=== PATIENT | female | born 1960 | race Hispanic/Latino ===

== ENCOUNTER 2020-01-07 03:09 | Emergency (ER) | payer SELFPAY ==
[~2020-01-07] VITALS: Ht 160 cm; Wt 77.1 kg
[2020-01-07] MEDS ORDERED: PANTOPRAZOLE 40 MG 10ML VIAL IV STA (03:17)
[2020-01-07] MEDS ORDERED: DONNATAL/LIDOCAINE/MAALOX 30 ML SUSP PO SCH (03:30)
[2020-01-07 03:49] LABS: BASOPHILS % 0.5 % (0.0-1.0); EOSINOPHILS % 0.5 % (0.0-6.0); HEMATOCRIT 41.1 % (34.2-44.1); HEMOGLOBIN 13.8 g/dL (12.0-16.0); LYMPHOCYTES # (AUTO) 1.7 (1.0-3.2); LYMPHOCYTES % 28.8 % (18.0-39.1); MEAN CORPUSCULAR HEMOGLOBIN 28.8 pg (28-32); MEAN CORPUSCULAR HGB CONC 33.6 g/dL (31-35); MEAN CORPUSCULAR VOLUME 85.6 fL (81-99); MONOCYTES # (AUTO) 0.3 (0.2-0.8); MONOCYTES % 4.7 % (4.4-11.3); NEUTROPHILS # (AUTO) 3.7 (2.1-6.9); NEUTROPHILS % 65.3 % (38.7-80.0); PLATELET COUNT 239 x10e3/uL (140-360); RED CELL DISTRIBUTION WIDTH 13.5 % (11.7-14.4)
--- NOTE | 2020-01-07 03:49 | Emergency Department Note ---
History of Present Illnes History of Present Illness Chief Complaint: General Medicine Complaints History of Present Illness This is a 59 year old female Chief Complaint Comment 59 Y/O FEMALE PT AAOX3 PRESENTS TO ED WITH REPORT OF INTERMITTENT ABDOMINAL PAIN WITH N/V AND BURNING SENSATION X1 MONTH; PT ALSO REPORTS CONSTIPATION AND REPORTS WAS SEEN BY MD AT [facility] AND RX'D DEXIL[facility]. Historian: Patient Arrival Mode: Car History limited by: language barrier Information Assurance Analyst Required: Yes Onset (how long ago): month(s) Location: Abdomen Quality: Generalized Radiation: Reports non-radiation Severity: moderate Onset quality: gradual Duration (how long): month(s) Timing of current episode: constant Progression: worsening Chronicity: chronic Context: Denies recent illness, Denies recent surgery Relieving factors: none Exacerbating factors: none Associated symptoms: Reports denies other symptoms Treatments prior to arrival: none (KIM EMERY MD) Past Medical/Family History Physician Review I have reviewed the patient's past medical and family history. Any updates have been documented here. (KIM EMERY MD) Past Medical History Recent Fever: No Clinical Suspicion of Infectio: No New/Unexplained Change in Ment: No Past Medical History: Hyperlipedemia Other Medical History: GASTRITIS Past Surgical History: Hysterectomy (KIM EMERY MD) Social History Smoking Cessation: Never Smoker Counseling Performed: No Alcohol Use: None Any Illegal Drug Use: No (KIM EMERY MD) Other Any Pre-Existing Lines (PICC,: No (KIM MEERY MD) Review of Systems Review of Systems Constitutional: Reports no symptoms EENTM: Reports no symptoms Cardiovascular: Reports no symptoms Respiratory: Reports no symptoms Gastrointestinal: Reports as per HPI Genitourinary: Reports no symptoms Musculoskeletal: Reports no symptoms Integumentary: Reports no symptoms Neurological: Reports no symptoms Psychological: Reports no symptoms Endocrine: Reports no symptoms Hematological/Lymphatic: Reports no symptoms (KIM EMERY MD) Physical Exam Related Data Allergies: Coded Allergies: No Known Allergies (Unverified , 01/07/20) Triage Vital Signs Vital Signs Date Time Temp Pulse Resp B/P (MAP) Pulse Ox O2 Delivery O2 Flow Rate FiO2 01/07/20 03:19 98.5 61 16 156/72 100 Room Air Vital signs reviewed: Yes (KIM EMERY MD) Physical Exam CONSTITUTIONAL Constitutional: Present well-developed, Present well-nourished HENT HENT: Present normocephalic, Present atraumatic, Present oropharynx clear/moist, Present nose normal HENT L/R: Present left ext ear normal, Present right ext ear normal EYES Eyes: Reports PERRL, Reports conjunctivae normal NECK Neck: Present ROM normal PULMONARY Pulmonary: Present effort normal, Present breath sounds normal CARDIOVASCULAR Cardiovascular: Present regular rhythm, Present heart sounds normal, Present capillary refill normal, Present normal rate GASTROINTESTINAL Abdominal: Present soft, Present bowel sounds normal, Present tender (Non focal) GENITOURINARY Genitourinary: Present exam deferred SKIN Skin: Present warm, Present dry MUSCULOSKELETAL Musculoskeletal: Present ROM normal NEUROLOGICAL Neurological: Present alert, Present oriented x 3, Present no gross motor or sensory deficits PSYCHOLOGICAL Psychological: Present mood/affect normal, Present judgement normal (KIM EMERY MD) Results Laboratory Lab results reviewed: Yes (KIM EMERY MD) Lab results reviewed: Yes Laboratory comments Laboratory Tests Test 01/07/20 03:31 01/07/20 03:25 Urine Color Yellow (YELLOW) Urine Clarity Clear (CLEAR) Urine pH 7 (5 - 7) Urine Specific [place] 1.020 (1.010-1.025) Urine Protein Negative (NEGATIVE) Urine Glucose (UA) Negative (NEGATIVE) Urine Ketones Negative (NEGATIVE) Urine Blood Negative (NEGATIVE) Urine Nitrite Negative (NEGATIVE) Urine Bilirubin Negative (NEGATIVE) Urine Urobilinogen 0.2 mg/dL (0.2 - 1) Urine Leukocyte Esterase Trace (NEGATIVE) Urine RBC 0-5 /HPF (0-5) Urine WBC 6-10 /HPF (0-5) Urine Epithelial Cells Moderate /LPF (NONE) Urine Bacteria Moderate /HPF (NONE) White Blood Count 5.72 x10e3/uL (4.8-10.8) Red Blood Count 4.80 x10e6/uL (3.6-5.1) Hemoglobin 13.8 g/dL (12.0-16.0) Hematocrit 41.1 % (34.2-44.1) Mean Corpuscular Volume 85.6 fL (81-99) Mean Corpuscular Hemoglobin 28.8 pg (28-32) Mean Corpuscular Hemoglobin Concent 33.6 g/dL (31-35) Red Cell Distribution Width 13.5 % (11.7-14.4) Platelet Count 239 x10e3/uL (140-360) Neutrophils (%) (Auto) 65.3 % (38.7-80.0) Lymphocytes (%) (Auto) 28.8 % (18.0-39.1) Monocytes (%) (Auto) 4.7 % (4.4-11.3) Eosinophils (%) (Auto) 0.5 % (0.0-6.0) Basophils (%) (Auto) 0.5 % (0.0-1.0) Neutrophils # (Auto) 3.7 (2.1-6.9) Lymphocytes # (Auto) 1.7 (1.0-3.2) Monocytes # (Auto) 0.3 (0.2-0.8) Eosinophils # (Auto) 0.0 (0.0-0.4) Basophils # (Auto) 0.0 (0.0-0.1) Absolute Immature Granulocyte (auto 0.01 x10e3/uL (0-0.1) Sodium Level 141 mmol/L (136-145) Potassium Level 4.0 mmol/L (3.5-5.1) Chloride Level 109 mmol/L (98-107) Carbon Dioxide Level 19 mmol/L (22-29) Anion Gap 17.0 mmol/L (8-16) Blood Urea Nitrogen 8 mg/dL (7-26) Creatinine 0.77 mg/dL (0.57-1.11) Estimat Glomerular Filtration Rate > 60 ML/MIN (60-) BUN/Creatinine Ratio 10 (6-25) Glucose Level 104 mg/dL (74-118) Calcium Level 9.9 mg/dL (8.4-10.2) Total Bilirubin 0.6 mg/dL (0.2-1.2) Aspartate Amino Transf (AST/SGOT) 15 IU/L (5-34) Alanine Aminotransferase (ALT/SGPT) 20 IU/L (0-55) Alkaline Phosphatase 102 IU/L (40-150) Troponin I 0.005 ng/mL (0-0.300) Total Protein 7.9 g/dL (6.5-8.1) Albumin 4.4 g/dL (3.5-5.0) Globulin 3.5 g/dL (2.3-3.5) Albumin/Globulin Ratio 1.3 (0.8-2.0) Lipase 24 U/L (8-78) (CHAPIN BRADSHAW DO) Imaging Imaging results reviewed: Yes (KIM EMERY MD) Imaging results reviewed: Yes Impressions [place] [address] Patient Name: DAE ALVAREZ MR #: [id number] : 1960 Age/Sex: 59/F Req #: [id number] Adm Physician: Ordered by: Kim Emery MD Report #: [id number] Location: ER Room/Bed: Procedure: [id number] DX/CHEST SINGLE (PORTABLE) Exam Date: Exam Time: REPORT STATUS: Signed EXAMINATION: CHEST SINGLE (PORTABLE) INDICATION: ^Y ^CP COMPARISON: None FINDINGS: AP view TUBES and LINES: None. LUNGS: Slight rotation. Lungs are well inflated. There is no evidence of pneumonia or pulmonary edema. Small left midlung linear atelectasis/scarring. PLEURA: No pleural effusion or pneumothorax. HEART AND MEDIASTINUM: The cardiomediastinal silhouette is unremarkable. BONES AND SOFT TISSUES: No acute osseous lesion. Soft tissues are unremarkable. UPPER ABDOMEN: No free air under the diaphragm. IMPRESSION: No acute thoracic abnormality. Signed by: Dr. Clifton Zheng MD on 01/07/2020 6:32 AM Dictated By: CLIFTON ZHENG MD 1 Transcribed By: FATMATA on 01/07/20631 COPY TO: KIM EMERY MD~ [address], [place], [place] [address] Patient Name: DAE ALVAREZ MR #: [id number] : 1960 Age/Sex: 59/F Req #: [id number] Adm Physician: Ordered by: Kim Emery MD Report #: [id number] Location: ER Room/Bed: Procedure: [id number] CT/CT ABDOMEN/PELVIS W Exam Date: Exam Time: REPORT STATUS: Signed EXAM: CT Abdomen and Pelvis WITH contrast INDICATION: ^R sided abd pain COMPARISON: None. TECHNIQUE: Abdomen and pelvis were scanned utilizing a multidetector helical scanner from the lung base to the pubic symphysis after administration of IV contrast. Coronal and sagittal reformations were obtained. Dose modulation, iterative reconstruction, and/or weight based adjustment of the mA/kV was utilized to reduce the radiation dose to as low as reasonably achievable. Routine protocol was performed. Scan was performed when during portal venous phase. IV CONTRAST: 100 mL of Isovue-370 ORAL CONTRAST: Water COMPLICATIONS: None RADIATION DOSE: Total DLP: 829.81 mGy*cm Estimated effective dose: (DLP x 0.015 x size factor) mSv CTDIvol has been reviewed. It is below the limits set by the Radiation Protocol Committee (RPC). FINDINGS: LINES and TUBES: None. LOWER THORAX: Unremarkable HEPATOBILIARY: No focal hepatic lesions. No biliary ductal dilation. GALLBLADDER: No radio-opaque stones or sludge. No wall thickening. SPLEEN: No splenomegaly. Too small to characterize hypodensity, likely a cyst. PANCREAS: No focal masses or ductal dilatation. ADRENALS: No adrenal nodules KIDNEYS/URETERS: Kidneys enhance symmetrically. No hydronephrosis. No renal mass. 1.4 cm right midpole hypodensity with slightly greater than simple fluid density, likely a mildly complex cyst. Subcentimeter right inferior pole hypodensity is too small to characterize. No stones. GI TRACT: No abnormal distention, wall thickening, or evidence of bowel obstruction. There are diverticula within the colon without evidence of diverticulitis. Appendix is normal. PELVIC ORGANS/BLADDER: Hysterectomy. Bladder is unremarkable. LYMPH NODES: No lymphadenopathy. VESSELS: Unremarkable. PERITONEUM / RETROPERITONEUM: No free air or fluid. BONES: Unremarkable. SOFT TISSUES: Unremarkable. IMPRESSION: 1. No acute inflammatory process in the abdomen/pelvis. 2. Colonic diverticulosis without evidence of diverticulitis. Signed by: Dr. Clifton Zheng MD on 01/07/2020 6:31 AM Dictated By: CLIFTON ZHENG MD 0 Transcribed By: FATMATA on 01/07/20630 COPY TO: KIM EMERY MD~ (CHAPIN BRADSHAW DO) Diagnostics Tests Diagnostic test(s) reviewed: Yes (KIM EMERY MD) Procedures 12 Lead ECG Interpretation ECG Interpretation : Information Assurance Analyst: Interpreted by ED physician Date: Jan 07, 2020 Rhythm: sinus rhythm Rate: normal QRS axis: normal ST segments normal: Yes T waves normal: Yes Clinical Impression: normal ECG (KIM EMERY MD) Assessment & Plan Medical Decision Making MDM 59 y.o F presents for reflux. States she used to take lemon juice which helped but it no longer helps which is why she is here. She has been seen at [facility] for this and has outpatient appointments arranged. Initial dif includes HERD VS PUD VS H pylori vs gallbladder disease vs appendicitis. Exam shows non focal abd discomfort. cardiopulmonary w/u benign. CT abd pelvis and labs ordered. She was given GI cocktail, protonix with moderate improvement in symptoms. (KIM EMERY MD) Reassessment Reassessment time: 03:49 Reassessment Pain improved (KIM EMERY MD) Assessment & Plan Final Impression: (1) Reflux gastritis (KIM EMERY MD) Depart Disposition: HOME, SELF-CARE Last Vital Signs Date Time Temp Pulse Resp B/P (MAP) Pulse Ox O2 Delivery O2 Flow Rate FiO2 01/07/20 03:19 98.5 61 16 156/72 100 Room Air (KIM EMERY MD) Medications in the ED Pantoprazole Sodium 40 mg NOW STAT IV ; Start 01/07/20 at 03:17; Stop 0 at 03:22; Status DC Belladonna Alkaloids/ Phenobarbital 30 ml ONCE PO ; Start 01/07/20 at 03:30; Stop 02/06/20 at 03:29 Lidocaine HCl 15 ml STK-MED ONCE .ROUTE ; Start 01/07/20 at 03:50; Stop 01/07/20 at 03:43; Status DC Belladonna Alkaloids/ Phenobarbital 10 ml STK-MED ONCE .ROUTE ; Start 01/07/20 at 03:50; Stop 01/07/20 at 03:43; Status DC Magnesium Aluminum Silicate 30 ml STK-MED ONCE .ROUTE ; Start 01/07/20 at 03:51; Stop 01/07/20 at 03:44; Status DC (KIM EMERY MD) KIM EMERY MD Jan 07, 2020 03:49 CHAPIN BRADSHAW DO Jan 07, 2020 06:38
[2020-01-07] MEDS ORDERED: LIDOCAINE VISC 2% SOLN 15 ML UDC ONE (03:50)
[2020-01-07] MEDS ORDERED: BELLADONNA ALK/PHENOBARBITAL 5 ML UDC ONE (03:50)
[2020-01-07 03:51] LABS: BILIRUBIN,URINE NEGATIVE (NEGATIVE); CLARITY,URINE CLEAR (CLEAR); COLOR,URINE YELLOW (YELLOW); KETONES,URINE NEGATIVE (NEGATIVE); LEUKOCYTE ESTERASE ,URINE TRACE (NEGATIVE); NITRITE,URINE NEGATIVE (NEGATIVE); PROTEIN,URINE DIPSTICK NEGATIVE (NEGATIVE); URINE UROBILINOGEN 0.2 mg/dL (0.2 - 1)
[2020-01-07] MEDS ORDERED: MAGNESIUM/ALUMINUM/SIMETHICONE 30 ML UDC ONE (03:51)
[2020-01-07] MEDS ORDERED: ONDANSETRON HCL INJ 2MG/ML 2ML 2 MG/ML VIAL IV STA (03:57)
[2020-01-07 03:59] LABS: BACTERIA,URINE MODERATE /HPF; EPITHELIAL CELLS,URINE MODERATE /LPF; RBC,URINE 0-5 /HPF (0-5)
[2020-01-07] MEDS ORDERED: ONDANSETRON HCL INJ 2MG/ML 2ML 2 MG/ML VIAL ONE (04:02)
[2020-01-07 04:06] LABS: ALANINE AMINOTRANSFERASE 20 IU/L (0-55); ALBUMIN 4.4 g/dL (3.5-5.0); ALBUMIN/GLOBULIN RATIO 1.3 (0.8-2.0); ALKALINE PHOSPHATASE 102 IU/L (40-150); BLOOD UREA NITROGEN 8 mg/dL (7-26); BUN/CREATININE RATIO 10 (6-25); CALCIUM 9.9 mg/dL (8.4-10.2); CARBON DIOXIDE 19 mmol/L (22-29); CHLORIDE 109 mmol/L (98-107); CREATININE, SERUM 0.77 mg/dL (0.57-1.11); EST GLOMERULAR FILTRATION RATE > 60 ML/MIN (60-); GLUCOSE 104 mg/dL (74-118); SODIUM 141 mmol/L (136-145)
--- OUTSIDE RECORDS SUMMARY | 2020-01-07 04:43 | XMS REPORT | Clinical Summary ---
Author Author [facility] Organization [facility] Address Unknown Phone Unavailable Care Team Providers Care Motion Picture Set Grip Name Role Phone Mike Arreaga MD PCP Allergies No Known Allergies Medications End Date Status Medication Sig Dispensed Refills Start Date Active hydrocortisone 2.5 % Apply to 20 g 2 05/06 topical creamIndications: affected area 9 Hemorrhoids, unspecified 2 times hemorrhoid type daily. Active hydrocortisone Insert 1 24 2 (ANUSOL-HC) 25 mg rectal Suppository Suppository 9 suppositoryIndications: rectally 2 Hemorrhoids, unspecified times daily. hemorrhoid type Active metFORMIN (GLUCOPHAGE XR) Take 1 tablet 90 tablet 3 500 mg ER extended by mouth 9 release daily (with tabletIndications: breakfast). Prediabetes Active atorvastatin (LIPITOR) 40 Take 2 180 tablet 1 mg tabletIndications: tablets by 9 Mixed hyperlipidemia mouth at bedtime nightly Active fenofibrate Take 1 tablet 90 tablet 1 nanocrystallized (TRICOR) by mouth 9 145 mg tabletIndications: daily Dose Mixed hyperlipidemia increased 06/20/2018. Active benzonatate (TESSALON Take 1-2 30 capsule 0 02/23 PERLES) 100 mg capsules by 9 capsuleIndications: Viral mouth every 8 URI with cough hours as needed for cough: Please use MALTESE LABEL. Active cetirizine (ZYRTEC) 10 mg Take 1 tablet 30 tablet 0 tabletIndications: Viral by mouth 9 URI with cough daily. Active mometasone (NASONEX) 50 2 Sprays by 17 g 0 mcg/actuation nasal each nostril 9 sprayIndications: Viral route daily URI with cough Please use MALTESE LABEL. Active nitrofurantoin Take 1 20 capsule 0 mono/m-crystals capsule by 0 (MACROBID) 100 mg mouth 2 times capsuleIndications: daily. Hematuria, unspecified type Active dexlansoprazole Take 1 90 capsule 1 (DEXILANT) 30 mg delayed capsule by 0 release mouth daily. capsuleIndications: Gastroesophageal reflux disease without esophagitis 01/28/2019 Discontinued (Reorder) atorvastatin (LIPITOR) 40 Take 1 tablet 90 tablet 1 mg tabletIndications: by mouth at 9 Mixed hyperlipidemia bedtime nightly 01/28/2019 Discontinued (Reorder) fenofibrate Take 1 tablet 90 tablet 1 nanocrystallized (TRICOR) by mouth 9 145 mg tabletIndications: daily Dose Mixed hyperlipidemia increased 06/20/2018. 03/11/2019 Discontinued (Therapy comple garth) benzonatate (TESSALON Take 1-2 30 capsule 0 /0 PERLES) 100 mg capsules by 9 capsuleIndications: Viral mouth every 8 URI with cough hours as needed for cough. 01/28/2019 Discontinued (Reorder) cetirizine (ZYRTEC) 10 mg Take 1 tablet 30 tablet 0 tabletIndications: Viral by mouth 9 URI with cough, Nasal daily Please congestion with use MALTESE rhinorrhea LABEL. 03/11/2019 Discontinued (Therapy comple garth) mometasone (NASONEX) 50 2 Sprays by 17 g 0 mcg/actuation nasal each nostril 9 sprayIndications: Viral route daily URI with cough, Nasal congestion with rhinorrhea 03/11/2019 Discontinued (Therapy comple garth) codeine-guaiFENesin Take 10 mL by 120 mL 0 10/24 (CHERATUSSIN AC) 10-100 mouth 3 times 9 mg/5 mL syrupIndications: daily as Cough needed for Cough or Congestion Caution: may cause drowsiness. 02/07/2019 Discontinued (Reorder) fenofibrate Take 1 tablet 90 tablet 1 nanocrystallized (TRICOR) by mouth 9 145 mg tabletIndications: daily Dose Mixed hyperlipidemia increased 06/20/2018. 01/30/2019 Discontinued (Reorder) atorvastatin (LIPITOR) 40 Take 1 tablet 90 tablet 1 mg tabletIndications: by mouth at 9 Mixed hyperlipidemia bedtime nightly 03/11/2019 Discontinued (Therapy comple garth) cetirizine (ZYRTEC) 10 mg Take 1 tablet 30 tablet 0 tabletIndications: Viral by mouth 9 URI with cough, Nasal daily Please congestion with use MALTESE rhinorrhea LABEL. 02/07/2019 ciprofloxacin HCl (CIPRO) Take 1 tablet 20 tablet 0 500 mg tabletIndications: by mouth 2 9 Dysuria times daily for 10 days. 02/07/2019 Discontinued (Reorder) atorvastatin (LIPITOR) 40 Take 2 180 tablet 1 mg tabletIndications: tablets by 9 Mixed hyperlipidemia mouth at bedtime nightly 02/10/2019 nitrofurantoin Take 1 20 capsule 0 mono/m-crystals capsule by 9 (MACROBID) 100 mg mouth 2 times capsuleIndications: UTI daily for 10 due to extended-spectrum days. beta lactamase (ESBL) producing Escherichia coli 11/09/2019 PHENAZOPYRIDINE HCL Take 100 mg 10 tablet 0 (PYRIDIUM) 100 mg by mouth 3 0 tabletIndications: times daily Hematuria, unspecified as needed for type up to 3 days for Pain. 12/04/2019 Discontinued (Reorder) cefpodoxime (VANTIN) 200 Take 1 tablet 20 tablet 0 mg tabletIndications: by mouth 2 0 Pyelonephritis, Cystitis times daily for 10 days. 12/19/2019 Discontinued (Therapy comple garth) ondansetron (ZOFRAN) 4 mg Take 1 tablet 12 tablet 0 tabletIndications: by mouth 0 Pyelonephritis, Cystitis every 8 hours as needed for Nausea. 12/14/2019 cefpodoxime (VANTIN) 200 Take 1 tablet 20 tablet 0 mg tabletIndications: by mouth 2 0 Pyelonephritis, Cystitis times daily (after meals) for 10 days. 12/26/2019 Discontinued (Therapy comple garth) famotidine (PEPCID) 20 mg Take 1 tablet 60 tablet 1 tabletIndications: by mouth 2 0 Gastritis without times daily bleeding, unspecified Start taking chronicity, unspecified only AFTER gastritis type FINISHING CEFPODOXIME. 12/29/2019 ondansetron (ZOFRAN) 8 mg Take 1 tablet 30 tablet 0 tabletIndications: Nausea by mouth 0 and vomiting, every 8 hours intractability of as needed for vomiting not specified, up to 10 days unspecified vomiting type for Nausea Fill DENY. 12/20/2019 TRIPLE MIX Take 5 mL by 15 mL 0 (Benadryl/Maalox/Lidocain mouth 3 times 0 e) oral suspension daily for 1 -CMPDIndications: day Fill Abdominal bloating DENY. Active Problems Problem Noted Date Right hip pain 06/23/2018 Prediabetes 08/27/2017 Claustrophobia 02/13/2017 Injury of right rotator cuff 02/13/2017 Left lower quadrant pain 10/31/2016 mild bilateral hip joint arthritis 11/08/2015 S/P hysterectomy (without oophrectomy - per pt.) S/P colonoscopy in 2014 --> recent hematochezia prior to 2019 scheduled f/u 07/16/2015 colonoscopy /Mar 2018 Colonoscopy Nor mal --> Repeat in 2028 Overview: FINDINGS: 1. Cecum - AO orifice visulized, TI int ubated. 2. Ascending colon - 1 small sessile po lyp (6mm) 3. Transverse colon - 1 small sessile p olyp (4mm) 4. Descending colon - normal 5. Sigmoid colon - normal 6. Rectum - moderate and small internal hemorrhoids. ENDOSCOPIC DIAGNOSIS: 1. Moderate-sized internal hemorrhoids. 2. 6mm sessile polyp in asecnding colon 3. 4mm small sessile polyp in transvers e colon RECOMMENDATIONS: 1. Follow up pathology on polyps 2. Conservative therapy for hemorrhoids (likely cause of bleeding). 3. Surveillance coloncsopy for CRC in 5 years (10 years if polyps are hyperplastic). No FIT/FOBT until then. ==== MAR 2018 COLONOSCOPY NORMAL WITH GRADE II INTERNAL HEMORRHOIDS ONLY History of herpes zoster 02/12/2015 Hematochezia 08/18/2014 Hypertriglyceridemia 07/31/2014 Hemorrhoids 07/31/2014 Obesity 07/31/2014 History of UTI ecoli 2014 07/31/2014 Gingivitis Chronic 01/19/2014 Other and unspecified hyperlipidemia Encounters Care Team Description Date Type Specialty Regino-Elroy, Kathi V, [employer]NAGER Hematuria, unspecified type (Primary Dx) ; Nausea and vomiting, intractability of vomiting not specified, unspecified vomiting type; Gastroesophageal reflux disease without esophagitis; Encounter for preventive care 12/26/2019 Telemedicine [facility] Justin Oneil MD Stress incontinence of urine (Primary Dx ) 12/23/2019 [facility] Chica Rowe PA Nausea and vomiting, intractability of v omiting not specified, unspecified vomiting type (Primary Dx); Abdominal bloating 12/19/2019 [facility] Encounter Carey Paiz RN 12/18/2019 Nurse Triage Mike Arreaga Jr., MD Gastroesophageal reflux disease without esophagitis; Fatty stools; Duodenal disease; Melena; Weakness 12/17/2019 Lab Appointment Lab Mike Arreaga Jr., MD 12/16/2019 Orders Only [facility] Mike Arreaga Jr., MD Gastroesophageal reflux disease without esophagitis (Primary Dx); Fatty stools; Pancreatic insufficiency; Duodenal disease 12/15/2019 [facility] Encounter Bear Ravi MD 12/07/2019 E-Consult Gastroenterology Mike Arreaga Jr., MD Gastritis without bleeding, unspecified chronicity, unspecified gastritis type (Primary Dx); Pyelonephritis; Cystitis 12/04/2019 [facility] Encounter Quentin Pate PA Pyelonephritis (Primary Dx); Lower abdominal pain; Dark stools; Cystitis 12/02/2019 Emergency Emergency Medicine - 12/03/2019 Mike Arreaga Jr., MD Melena (Primary Dx); Kidney stone; Weakness 12/02/2019 [facility] Encounter Kathi Brown NP Urinary frequency (Primary Dx); Proteinuria, unspecified type; Kidney stone; Lower abdominal pain [facility] Kathi Brown NP Hematuria, unspecified type (Primary Dx) 11/06/2019 [facility] Encounter Nadeem Atkins MD Veloz, Jessica, BILLIE Tc, 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 02/07/2019 Office Visit Family Practice Breezy Amezcua MD 02/07/2019 Orders Only [facility] Mike Arreaga Jr., MD Medications 01/30/2019 Orders Only [facility] Mike Arreaga Jr., MD Dysuria 01/28/2019 Lab Appointment Lab Mike Arreaga Jr., MD Need for influenza vaccination (Primary Dx); Dysuria; Preventative health care; Right subscapular pain; Female pelvic pain; Breast screening; Mixed hyperlipidemia; Viral URI with cough; Nasal congestion with rhinorrhea 01/28/2019 Office Visit Family Practice after 01/06/2019 Immunizations Name Administration Dates Next Due Herpes Zoster Vaccine In 02/12/2015 Clinic Influenza Vaccine 02/03/2015, 01/07/2014, 01/2011 Influenza Vaccine, 02/06/2017 Seasonal, Injectable Influenza, 01/28/2019, 05/06/2018 Vaccine<FLUCELVAX>(Multi- Dose) Td Tetanus, diphtheria 11/26/2003 Toxoids Vaccine Tdap Tetanus, diphtheria, 10/29/2012 acellular pertussis Vaccine Family History Medical History Relation Name Comments Arthritis Maternal Grandmother Heart Maternal Grandmother Stroke Mother Relation Name Status Comments Brother Alive Daughter Alive Father accident (Age 75) Maternal Grandfather Maternal Grandmother Mother Paternal Grandfather Paternal Grandmother Sister Alive Son Alive Son Alive Son Alive Social History Date Tobacco Use Types Packs/Day Years Used Never Smoker Smokeless Tobacco: Never Used Tobacco Cessation: Counseling Given: No Drinks/Week oz/Week Comments Alcohol Use No Food Insecurity Answer Date Recorded Within the past 12 months, you worried that your Never nettie e 02/21/2018 food would run out before you got money to buy more. Within the past 12 months, the food you bought Never true 02/21/2018 just didn't last and you didn't have mo yobani to get more. Sex Assigned at Date Recorded Not on file Industry Job Start Date Occupation Not on file Not on file Not on file Travel End Travel History Travel Start No recent travel history available. Date Recorded COVID-19 Exposure Response 12/29/2019 7:40 AM CDT In the last month, have you been in contact with No / Unsure someone who was confirmed or suspected to have Coronavirus / COVID-19? Last Filed Vital Signs Reading Time Taken Comments Vital Sign 134/79 12/03/2019 1:51 AM CDT Blood Pressure 61 12/03/2019 1:51 AM CDT Pulse 36.9 C (98.5 F) 12/03/2019 1:51 AM CDT Temperature 16 12/03/2019 1:51 AM CDT Respiratory Rate 100% 12/03/2019 1:51 AM CDT Oxygen Saturation - - Inhaled Oxygen Concentration 86.2 kg (190 lb) 03/11/2019 11:15 AM CUSTOM BOOKBINDER Weight 154.9 cm (5' 1") 03/11/2019 11:15 AM CUSTOM BOOKBINDER Height 35.9 03/11/2019 11:15 AM CUSTOM BOOKBINDER Body Mass Index Plan of Treatment Care Team Description Date Type Specialty 01/08/2020 Appointment Radiology DO NOT eat, drink, chew gum, smoke, do not take any medication, vitamin or insulin after 10pm the night before your appointment or the morning of your appointment. 01/08/2020 Appointment Radiology 01/12/2020 Office Visit Mike Arreaga Jr., MD [address] [place] [address]. [place] [address] [phone] 01/28/2020 Office Visit Family Practice 02/26/2020 Ancillary Radiology Procedure Health Maintenance Due Date Last Done Comments Breast Cancer Scrn 02/15/2020 02/14/2019, (Yearly) 12/04/2017, 12/05/2016, Additional history exists Colonoscopy 10yr 04/12/2028 04/12/2018 (Previously completed - External), 10/06/2014 Procedures Comments Procedure Name Priority Date/Time Associated Diag nosis URINE CULTURE Routine 12/26/2019 Hematuria, unsp ecified 3:32 PM CDT type CBC Routine 12/26/2019 Hematuria, unsp ecified 3:32 PM CDT type URINALYSIS Routine 12/26/2019 Hematuria, unsp ecified 3:32 PM CDT type CBC/DIFF Routine 12/26/2019 Hematuria, unsp ecified 3:32 PM CDT type URINALYSIS Routine 12/26/2019 Hematuria, unsp ecified 3:32 PM CDT type BASIC METABOLIC PANEL Routine 12/26/2019 Nausea a nd vomiting, 3:32 PM CDT intractability of vomiting not specified, unspecified vomiting type H. PYLORI STOOL AG Routine 12/18/2019 Gastroesoph ageal reflux 10:02 AM CDT disease without esophagitis Fatty stools Duodenal disease URINE CULTURE Routine 12/17/2019 Urinary frequen cy 3:38 PM CDT Proteinuria, unspecified type Kidney stone Lower abdominal pain CBC STAT 12/17/2019 Melena 3:38 PM CDT Weakness CBC/DIFF STAT 12/17/2019 Melena 3:38 PM CDT Weakness LIPASE Routine 12/17/2019 Gastroesophagea l reflux 3:38 PM CDT disease without esophagitis Fatty stools Duodenal disease BASIC METABOLIC PANEL Routine 12/17/2019 Melena 3:38 PM CDT Kidney stone URINALYSIS Routine 12/17/2019 Urinary frequen cy 3:38 PM CDT Proteinuria, unspecified type Kidney stone Lower abdominal pain URINALYSIS Routine 12/17/2019 Urinary frequen cy 3:38 PM CDT Proteinuria, unspecified type Kidney stone Lower abdominal pain URINE CULTURE STAT 12/02/2019 11:[address] ABDOMEN AND PELVIS STAT 12/02/2019 Lower ab dominal pain CONTRAST 9:57 PM CDT ABO/RH CONFIRMATION STAT 12/02/2019 3:04 PM CDT T&S - COLLECTION STAT 12/02/2019 3:04 PM CDT URINALYSIS STAT 12/02/2019 3:04 PM CDT CBC STAT 12/02/2019 3:04 PM CDT TYPE AND SCREEN STAT 12/02/2019 3:04 PM CDT LIPASE STAT 12/02/2019 3:04 PM CDT LIVER PROFILE STAT 12/02/2019 3:04 PM CDT URINALYSIS STAT 12/02/2019 3:04 PM CDT CBC/DIFF STAT 12/02/2019 3:04 PM CDT BASIC METABOLIC PANEL STAT 12/02/2019 3:04 PM CDT URINE CULTURE Routine 11/11/2019 Hematuria, unsp ecified 3:30 PM CDT type URINALYSIS Routine 11/11/2019 Hematuria, unsp ecified 3:30 PM CDT type URINALYSIS Routine 11/11/2019 Hematuria, unsp ecified 3:30 PM CDT type MAMMOGRAM BILAT SCREEN Routine 02/14/2019 Breast screening DIGITAL 10:19 AM [employer]OM BOOKBINDER URINE CULTURE Routine 01/28/2019 Dysuria 11:10 AM [employer]OM BOOKB[employer]ER URINALYSIS Routine 01/28/2019 Dysuria MICROSCOPIC-REFLEX 11:10 AM C[employer]OM BOOKB[employer]ER CBC Routine 01/28/2019 Preventative he alth care 11:10 AM C[employer]OM BOOKB[employer]ER CBC/DIFF Routine 01/28/2019 Preventative he alth care 11:10 AM C[employer]OM BOOKB[employer]ER COMPREHENSIVE METABOLIC Routine 01/28/2019 [facility] PANEL 11:10 AM CUSTOM BOOKBINDER LIPID PROFILE Routine 01/28/2019 Preventative he alth care 11:10 AM C[employer]OM BOOKB[employer]ER HEMOGLOBIN A1C Routine 01/28/2019 Preventative he alth care 11:10 AM CUSTOM BOOKB[employer]ER URINALYSIS STAT 01/28/2019 Dysuria 11:10 AM CUSTOM BOOKB[employer]ER URINALYSIS STAT 01/28/2019 Dysuria 11:10 AM CUSTOM BOOKBINDER after 01/06/2019 Results * CBC/Diff (12/26/2019 3:32 PM CDT) Only the most recent of 4 results within the time period is included. WBC 8.7 4.5 - 11.0 K/uL [facility] RBC 4.63 4.20 - 5.40 M/uL [facility] Hemoglobin 13.7 12.0 - 16.0 g/dL [facility] Hematocrit 40.7 37.0 - 47.0 % [facility] MCV 87.9 82.0 - 92.0 fL [facility] MCH 29.6 27.0 - 32.0 pg [facility] MCHC 33.7 32.0 - 36.0 g/dL [facility] RDW 43.6 36.4 - 46.3 fL [facility] Platelet 257 150 - 400 K/uL [facility] Mean Platelet 12.0 9.4 - 12.4 fL [facility] Percent NRBC 0.0 % [facility] Neutrophil 73.5 (H) 34.0 - 70.0 % [facility] Lymphs 20.2 20.0 - 50.0 % [facility] Monocytes 4.9 (L) 5.0 - 12.0 % [facility] Eos 0.5 (L) 0.7 - 5.0 % [facility] Basos 0.6 0.1 - 1.2 % [facility] Immature 0.3 0.0 - 0.5 % [facility] Granul[facility] Neutrophils 6.40 (H) 1.56 - 6.13 K/uL [facility] (Absolute) [facility] Lymphs 1.76 1.18 - 3.74 K/uL [facility] (Absolute) [facility] Monocytes(Absol 0.43 (H) 0.24 - 0.36 K/uL [facility] [place]) [facility] Eos (Absolute) 0.04 0.04 - 0.36 K/uL [facility] Baso (Absolute) 0.05 0.01 - 0.08 K/uL [facility] Immature Grans 0.03 0.00 - 0.03 K/uL [facility] (Abs) [facility] Absolute NRBC 0.00 K/uL [facility] Specimen Blood Performing Organization Address [facility]/Counts Include [address] one Number [facility] [address] [place] [address] [phone] * Urinalysis (12/26/2019 3:32 PM CDT) Only the most recent of 5 results within the time period is included. Color Yellow Colorless, Straw, [facility] Clarity Hazy (A) Clear [facility] Spec [place], 1.027 1.001 - 1.035 [facility] pH, Ur 5.0 5.0 - 8.0 [facility] Protein, Ur Negative Negative mg/dL [facility] Glucose, Ur Negative Negative mg/dL [facility] Ketone, Ur Negative Negative mg/dL [facility] Bilirubin, Ur Negative Negative mg/dL [facility] Nitrite, Ur Negative Negative [facility] Leukocyte 1+ (A) Negative mg/dL [facility] Blood, Ur Negative Negative mg/dL [facility] RBC 1 0 - 4 /HPF [facility] WBC 2 0 - 5 /HPF [facility] Epithelial Cell 1 <=1 /HPF [facility] Mucous Present (A) None seen /HPF [facility] Urobilinogen, <1.0 <1.0 EU/dL [facility] Specimen Urine - Clean Catch [place] Performing Organization Address [facility] one Number [facility] [address] [place] [address] * URINE CULTURE (C & S) (12/26/2019 3:32 PM CDT) Only the most recent of 5 results within the time period is included. Pathologist [facility] Urine Culture Multiple organisms suggestive [facility] of contamination. No further LABORATORY workup performed. Please recollect. Specimen Urine - Clean Catch [place] Performing Organization Address [facility]/Counts Include [facility] one Number [facility] [address] [place] [address] * Basic Metabolic Panel (12/26/2019 3:32 PM CDT) Only the most recent of 3 results within the time period is included. Sodium 141 136 - 145 mmol/L [facility] Potassium 4.3 3.5 - 5.1 mmol/L [facility] Chloride 104 98 - 107 mmol/L [facility] CO2 26 21 - 31 mmol/L [facility] Urea Nitrogen 11.0 7.0 - 25.0 mg/dL [facility] Creatinine 0.8 0.6 - 1.2 mg/dL [facility] Glucose 99 70 - 110 mg/dL [facility] Calcium 10.0 8.6 - 10.3 mg/dL [facility] GFR, Estimated 73 (L) >=90 mL/min/1.73 m2 [facility] Anion Gap 11 5 - 16 mmol/L [facility] Specimen Blood Performing Organization Address [facility]/Counts Include [facility] one Number [facility] [address] [place] [address] * H. Pylori Stool Ag (12/18/2019 10:02 AM CDT) Pathologist [facility] H. pylori Stool Negative Negative [facility] Ag, EIA Specimen Stool - Feces Narrative Performed At Performed at: 01 - [facility] BT [facility] [address] [place] [address] [address] Surfacer: Veronica Killian MD, Phone : [phone] Performing Organization Address [facility]/Counts Include [address] [facility] one Number [facility] [address] [place] [address] * Lipase (12/17/2019 3:38 PM CDT) Only the most recent of 2 results within the time period is included. Pathologist [facility] Lipase 37 11 - 82 U/L [facility] Specimen Blood Performing Organization Address [facility]/Counts Include [facility] one Number [facility] [address] [place] [address] * CT ABDOMEN AND PELVIS CONTRAST (12/02/2019 9:57 PM CDT) Specimen Impressions Performed At IMPRESSION: SMS 1. Mild thickening of the bladder wal l, which can be seen in cystitis. 2. Hepatomegaly with steatosis. Dictated By: Armond Wang DO, 12/02/19 20 10:14 PM I have reviewed the study and agree wit h the findings in this report. Signed By: Demario Hunter DO, 12/03/2019 12:35 AM Narrative Performed At EXAM: CT Abdomen and Pelvis WITH contrast SMS INDICATION: Abd pain, acute, generalize d Lower abdominal pain HISTORY: 59 y/o F with a h/o anemia, an xiety, recent UTI s/p treatment in the past week who p/w ongoing lower abdominal pain, mild dysuria, and c/f kidney stones as well as GIB per PC P (pt sent for evaluation). She reports R flank pain radiating to her R LQ without hematuria; she denies fever, chills. She reports nausea and 2 episodes of non-bloody emesis. She also reports dark stools x 2 days ( 6 total episodes), as well as generalized fatigue.? COMPARISON: CT abdomen pelvis on 017 TECHNIQUE: Abdomen and pelvis were scan douglas utilizing a multidetector helical scanner from the lung base to t he pubic symphysis after administration of IV contrast. Coronal and sagittal reformations were obtained. Routine protocol was performe d. Scan was performed when during portal venous phase. IV CONTRAST: 100 mL of Omnipaque 300 ORAL CONTRAST: None COMPLICATIONS: None RADIATION DOSE: Total DLP: 401 mGy*cm Estimated effective dose: (DLP x 0.015 x size factor) mSv CTDIvol has been reviewed. It is below the limits set by the Radiation Protocol Committee (RPC). FINDINGS: LINES and TUBES: None. LOWER THORAX: Unremarkable. HEPATOBILIARY: The liver measures 16.7 cm in the right midclavicular line. Decreased attenuation when compar ed to the spleen, compatible with steatosis. No focal hepatic lesions. No biliary ductal dilation. GALLBLADDER: No radio-opaque stones or sludge. No wall thickening. SPLEEN: No splenomegaly. Unchanged 0.5 cm hypodense lesion along the inferior aspect of the spleen is too sm all to characterize. PANCREAS: No focal masses or ductal dil atation. ADRENALS: No adrenal nodules. KIDNEYS/URETERS: Kidneys enhance symmet rically. No hydronephrosis. Unchanged 1.4 cm cyst in the right supe rior pole. No stones. GI TRACT: Stomach: Unremarkable. Small Bowel: Unremarkable. Large Bowel: Unremarkable. Appendix: Normal. PELVIC ORGANS/BLADDER: Mild bladder wal l thickening. The uterus is surgically absent. LYMPH NODES: No lymphadenopathy. VESSELS: Minimal atherosclerosis of the infrarenal abdominal aorta. PERITONEUM / RETROPERITONEUM: No free a ir or fluid. BONES: Unremarkable mild degenerative c hanges of the lumbar spine. SOFT TISSUES: Tiny fat-containing periu mbilical hernia.. Procedure Note Interface, Rad/Mammog In - 12/03/2019 12:40 AM CDT EXAM: CT Abdomen and Pelvis WITH contrast INDICATION: Abd pain, acute, generalized Lower abdominal pain HISTORY: 59 y/o F with a h/o anemia, anxiety, recent UTI s/p treatment in the past week who p/w ongoing lower abdominal pain, mild dysuria, and c/f kidney stones as well as GIB per PCP (pt sent for evaluation). She reports R flank pain radiating to her RLQ without hematuria; she denies fever, chills. She reports nausea and 2 episodes of non-bloody emesis. She also reports dark stools x 2 days (6 total episodes), as well as generalized fatigue.? COMPARISON: CT abdomen pelvis on 11/10/2016 TECHNIQUE: Abdomen and pelvis were scanned utilizing a multidetector helical scanner from the lung base to the pubic symphysis after administration of IV contrast. Coronal and sagittal reformations were obtained. Routine protocol was performed. Scan was performed when during portal venous phase. IV CONTRAST: 100 mL of Omnipaque 300 ORAL CONTRAST: None COMPLICATIONS: None RADIATION DOSE: Total DLP: 401 mGy*cm Estimated effective dose: (DLP x 0.015 x size factor) mSv CTDIvol has been reviewed. It is below the limits set by the Radiation Protocol Committee (RPC). FINDINGS: LINES and TUBES: None. LOWER THORAX: Unremarkable. HEPATOBILIARY: The liver measures 16.7 cm in the right midclavicular line. Decreased attenuation when compared to the spleen, compatible with steatosis. No focal hepatic lesions. No biliary ductal dilation. GALLBLADDER: No radio-opaque stones or sludge. No wall thickening. SPLEEN: No splenomegaly. Unchanged 0.5 cm hypodense lesion along the inferior aspect of the spleen is too small to characterize. PANCREAS: No focal masses or ductal dilatation. ADRENALS: No adrenal nodules. KIDNEYS/URETERS: Kidneys enhance symmetrically. No hydronephrosis. Unchanged 1.4 cm cyst in the right superior pole. No stones. GI TRACT: Stomach: Unremarkable. Small Bowel: Unremarkable. Large Bowel: Unremarkable. Appendix: Normal. PELVIC ORGANS/BLADDER: Mild bladder wall thickening. The uterus is surgically absent. LYMPH NODES: No lymphadenopathy. VESSELS: Minimal atherosclerosis of the infrarenal abdominal aorta. PERITONEUM / RETROPERITONEUM: No free air or fluid. BONES: Unremarkable mild degenerative changes of the lumbar spine. SOFT TISSUES: Tiny fat-containing periumbilical hernia.. IMPRESSION IMPRESSION: 1. Mild thickening of the bladder wall, which can be seen in cystitis. 2. Hepatomegaly with steatosis. Dictated By: Armond Wang DO, 12/02/2019 10:14 PM I have reviewed the study and agree with the findings in this report. Signed By: Demario Hunter DO, 12/03/2019 12:35 AM Performing Organization Address [facility]/Counts Include [facility] one Number SMS * T&S Collection (12/02/2019 3:04 PM CDT) Specimen 12/05/2019 23:59 [facility] Expiration ABO/RH O POS [facility] Antibody Screen NEG [facility] Specimen Blood - Arm, left Performing Organization Address [facility] one Number [facility] [address] [place] [address] * ABO/RH CONFIRMATION (12/02/2019 3:04 PM CDT) ABO/RH O POS [facility] Specimen Blood - Arm, left Performing Organization Address [facility] one Number [facility] [address] [place] [address] * Liver Profile (12/02/2019 3:04 PM CDT) Total Protein 8.0 6.0 - 8.3 g/dL [facility] Bilirubin, 0.5 0.2 - 1.2 mg/dL [facility] Total [facility] Alkaline 112 (H) 34 - 104 U/L [facility] Phosphatase [facility]ORY AST 19 13 - 39 U/L [facility] Direct 0.1 0.0 - 0.2 mg/dL [facility] Bilirubin [facility] ALT 26 7 - 52 U/L [facility] Albumin 4.9 3.7 - 5.3 g/dL [facility] Specimen Blood Performing Organization Address [facility] one Number [facility] [address] [place], [place] [id number] * MAMMOGRAM BILAT SCREEN DIGITAL (02/14/2019 10:19 AM CUSTOM BOOKBINDER) Specimen Impressions Performed At IMPRESSION: BENIGN SMS There is no mammographic evidence of ma lignancy. A 1 year screening mammogram is recommended. This document has been electronically s igned. Nicole Haney M.D. ks/:02/14/2019 12:24:28 Ex Assistant/Program Director: Ms. Aimee llamas RT(R)(M), [facility] letter sent: Benign Exam Mammogram BI-RADS: 2 Benign G0202 z1 2.31 Narrative Performed At #[id number] - MAMMOGRAM BILAT SCREEN DIGITAL SMS BILATERAL DIGITAL SCREENING MAMMOGRAM W ITH CAD: 02/14/2019 CLINICAL: Screening for malignancy. Comparison is made to exams dated: 01/2018, 12/05/2016, and 07/16/2015 [facility]. There are scattered fibroglandular [place] ents in both breasts that could obscure a lesion on mammography. Current study was also evaluated with a Computer Aided Detection (CAD) system. No new significant masses, calcificatio ns, or other findings are seen in either breast. There are annabelle gn calcifications in both breasts. Procedure Note Interface, Rad/Mammog In - 02/14/2019 2:14 PM CUSTOM BOOKBINDER #[id number] - MAMMOGRAM BILAT SCREEN DIGITAL BILATERAL DIGITAL SCREENING MAMMOGRAM WITH CAD: 02/14/2019 CLINICAL: Screening for malignancy. Comparison is made to exams dated: 12/04/2017, 12/05/2016, and 07/16/2015 [facility]. There are scattered fibroglandular elements in both breasts that could obscure a lesion on mammography. Current study was also evaluated with a Computer Aided Detection (CAD) system. No new significant masses, calcifications, or other findings are seen in either breast. There are benign calcifications in both breasts. IMPRESSION IMPRESSION: BENIGN There is no mammographic evidence of malignancy. A 1 year screening mammogram is recommended. This document has been electronically signed. Nicole Haney M.D. ks/:02/14/2019 12:24:28 Ex Assistant/Program Director: Ms. Aimee Ba RT(R)(M), [facility] letter sent: Benign Exam Mammogram BI-RADS: 2 Benign G0202 z12.31 Performing Organization Address City/State/Counts Include [facility] one Number SMS * URINALYSIS, MICROSCOPIC (01/28/2019 11:10 AM CUSTOM BOOKBINDER) RBC 1-4 0 - 4 /HPF [facility] WBC 20-50 (A) 0 - 5 /HPF [facility] Epithelial Cell <1/HPF <1 /HPF [facility] Bacteria Many (A) None seen /HPF [facility] Specimen Urine - Clean Catch Mid Stream Performing Organization Address [facility]/Counts Include [facility] one Number [facility] [address] [place] [address] [facility] * Hemoglobin A1C (01/28/2019 11:10 AM CUSTOM BOOKBINDER) Hemoglobin A1c 6.0 4.3 - 6.1 % [facility] Estimated 126 (H) 70 - 110 mg/dL [facility] Average Glucose LABOR[facility]ORY Specimen Blood Performing Organization Address [facility]/Counts Include [facility] one Number [facility] [address] [place] [address] * Comprehensive Metabolic Panel (01/28/2019 11:10 AM CUSTOM BOOKBINDER) Sodium 141 136 - 145 mmol/L [facility] Potassium 4.3 3.5 - 5.1 mmol/L [facility] Chloride 105 98 - 107 mmol/L [facility] CO2 27 21 - 31 mmol/L [facility] Glucose 74 70 - 110 mg/dL [facility] Calcium 9.7 8.6 - 10.3 mg/dL [facility] Urea Nitrogen 11.0 7.0 - 25.0 mg/dL [facility] Creatinine 0.6 0.6 - 1.2 mg/dL [facility] Alkaline 93 34 - 104 U/L [facility] Phosphatase [facility] ALT 19 7 - 52 U/L [facility] AST 16 13 - 39 U/L [facility] Bilirubin, 0.7 0.2 - 1.2 mg/dL [facility] Total Protein 7.3 6.0 - 8.3 g/dL [facility] GFR, Estimated >90 >=90 mL/min/1.73 m2 [facility] Albumin 4.6 3.7 - 5.3 g/dL [facility] Anion Gap 9 5 - 16 mmol/L [facility] Specimen Blood Performing Organization Address City/[facility]/Zipcode Ph one Number [facility] [address] [place] [address] [phone] * Lipid Profile (01/28/2019 11:10 AM CUSTOM BOOKBINDER) Cholesterol 222.0 (H) <=200.0 mg/dL [facility] Triglyceride 446 (H) <150 mg/dL [facility] HDL 36.0 See Reference Range [facility] Narrative. mg/dL [facility]ORY LDL Comment: Triglyceride value is <100 mg/dL [facility] > 400 mg/dl. Unable to LABORATORY calculate LDL value due to high triglyceride. Patient Yes [facility] Fasting? [facility] Specimen Blood Performing Organization Address City/[facility] [address] [place] [address] after 01/06/2019 Insurance Type Payer Benefit Subscriber ID Effective Phone Address Plan / Dates Group [place] [facility] xxxxxx 2019- [address] [employer] FAMILY [id number] [place], [place] [address] [employer] xxxxxx 2019- [phone] [id number] [place] [address] Guarantor Name Account Relation to Date of Phone Billin g Address Type Patient DAE ALVAREZ Personal/F Head of 1960 [address] (Home) [place], [place] [phone] (Self) DAE ALVAREZ Gerry Head of 1960 [address] ([place]) [place] [address] (Self)
--- OUTSIDE RECORDS SUMMARY | 2020-01-07 04:43 | XMS REPORT | Continuity of Care Document ---
Author Author [facility] t Organization [facility] Address 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 Phone Gibson BETTS, Mike PCP Stephanie EMBROIDERY PATTERNMAKER, Kathi Attphys [phone] Thad BETTS, N Justin Attphys Soledad VILLANUEVA, Gregorio Coto Attphys Chencho RN, Jessenia Patino Attphys Unavailable Gibson BETTS, Mike Attphys Trav BETTS, Denise Sifuentes Attphys Herlinda VILLANUEVA, Dneise Saavedra Attphys Milly BETTS, Tripp Silver Attphys Shiva EMBROIDERY PATTERNMAKER, Shannan Attphys Tc EMBROIDERY PATTERNMAKER, Deena Cano Attphys Wilmar RODRÍGUEZ, Marianne Tai Attphys Unavailable Seven BETTS, Krunal Tijerina Attphys Payers Payer Name Policy Type Policy Number Effective Date Expiration Date [facility] [place] FAM[place] LY PLANNING [id number], [place] [address] xxxxxx 2019 00:00:00 2020 23:59:59 [facility] PLANFINANCIAL ASSISTANCE PROGRAMxxx [id number] [place] [address] xxxxxx 2019 00:00:00 04-06 23:59:59 [facility] Problems Condition Name Condition Details Condition Category Status Onset Date Resolution Date Last Treatment Date Treating Clinician Comments Source Right hip pain Right hip pain Disease Active 2018-06-23 00:00:00 [facility] Prediabetes Prediabetes Disease Active 2017-08-27 00:00:00 [facility] Claustrophobia Claustrophobia Disease Active 2017-02-13 00:00:00 [facility] Injury of right rotator cuff Injury of right rotator cuff Disease Active 2017-02-13 00:00:00 [facility] Left lower quadrant pain Left lower quadrant pain Disease Acti ve 2016-10-31 00:00:00 [facility] mild bilateral hip joint arthritis mild bilateral hip joint arth ritis Disease Active 2015-11-08 00:00:00 [employer] S/P hysterectomy (without oophrectomy - per pt.) S/P h ysterectomy (without oophrectomy - per pt.) Disease Active 2015-07-19 00:00:00 [employer] S/P colonoscopy in 2014 --> recent hemat ochezia prior to 2019 scheduled f/u colonoscopy /Mar 2018 Colonoscopy Normal --> Repeat in 2028 S/P colonoscopy in 2014 --> recent hematochezia prior to 2019 scheduled f/u colonoscopy /Mar 2018 Colonoscopy Normal --> Repeat in 2028 Disease Active 2015-07-16 00:00:00 Overview: FINDINGS:1. Cecum - AO orifice visulized, TI intubated.2. Ascending colon - 1 small sessile polyp (6mm)3. Transverse colon - 1 small sessile polyp (4mm)4. Descending colon - normal5. Sigmoid colon - normal6. Rectum - moderate and small internal hemorrhoids.ENDOSCOPIC DIAGNOSIS:1. Moderate-sized internal hemorrhoids.2. 6mm sessile polyp in asecnding colon3. 4mm small sessile polyp in transverse colonRECOMMENDATIONS:1. Follow up pathology on polyps2. Conservative therapy for hemorrhoids (likely cause of bleeding).3. Surveillance coloncsopy for CRC in 5 years (10 years if polyps are hyperplastic). No FIT/FOBT until then.====MAR 2018 COLONOSCOPY NORMAL WITH GRADE II INTERNAL HEMORRHOIDS ONLY [facility] History of herpes zoster History of herpes zoster Disease Acti ve 2015-02-12 00:00:00 [facility] Hematochezia Hematochezia Disease Active 2014-08-18 00:00:00 [facility] Hypertriglyceridemia Hypertriglyceridemia Disease Active 00:00:00 [facility] Hemorrhoids Hemorrhoids Disease Active 2014-07-31 00:00:00 [facility] Obesity Obesity Disease Active 2014-07-31 00:00:00 [facility] History of UTI ecoli 2014 History of UTI ecoli 2014 Disease A ctive 2014-07-31 00:00:00 [facility] Gingivitis Chronic Gingivitis Chronic Disease Active 2014-01-19 00:00:0 0 [facility] Other and unspecified hyperlipidemia Other and unspecified h yperlipidemia Disease Active [facility] Allergies, Adverse Reactions, Alerts Allergy Name Allergy Type Status Severity Reaction(s) Onset Date Inacti ve Date Treating Clinician Comments Source No Known Allergies DA Active U 2016-12-04 00:00:00 [facility] Family History Family Member Diagnosis Comments Start Date Stop Date Source Maternal grandmother Arthritis [facility] Maternal grandmother Heart [facility] is [facility] Natural mother Stroke [facility] Social History Social Habit Start Date Stop Date Quantity Comments Source Sex Assigned [facility] Exposure to SARS-CoV-2 (event) Not sure [facility] Alcohol intake 2019-12-19 00:00:00 2019-12-19 00:00:00 Current non-drinker of alcohol (finding) [facility] History SDOH Food Worry 2018-02-21 00:00:00 2018-02-21 00:00:00 1 [facility] History SDOH Food Scarcity 2018-02-21 00:00:00 2018-02-21 00:00:00 1 [facility] Smoking Status Start Date Stop Date Source Never smoker [facility] Medications Ordered Medication Name Filled Medication Name Start Date Stop Da te Current Medication? Ordering Clinician Indication Dosage Frequency Signature (SIG) Comments Components Source dexlansoprazole (DEXILANT) 30 mg delayed release capsule 2019-12-26 00:00:00 Yes Gastroesophageal reflux disease without esophag itis 30mg QD Take 1 capsule by mouth daily. [facility] ondansetron (ZOFRAN) 8 mg tablet 2019-12-19 00:00:00 2019-12 23:59:00 No Nausea and vomiting, intractability of vomiting not specified, unspecified vomiting type 8mg Take 1 tablet by amadou th every 8 hours as needed for up to 10 days for Nausea Fill DENY. [facility] TRIPLE MIX (Benadryl/Maalox/Lidocaine) oral suspension -CMPD 2019-12-19 00:00:00 2019-12-20 23:59:00 No Abdominal bloating 5mL Take 5 mL by mouth 3 times daily for 1 day Fill DENY. [facility] famotidine (PEPCID) 20 mg tablet 2019-12-04 00:00:00 2019-12 00:00:00 No Gastritis without bleeding, unspecified chronicity, unspecified gastritis type 20mg Q.5D Take 1 tablet by mouth 2 otis es daily Start taking only AFTER FINISHING CEFPODOXIME. [facility] cefpodoxime (VANTIN) 200 mg tablet 2019-12-04 00:00:00 23:59:00 No Cystitis 200mg Q.5D Take 1 tablet by mouth 2 times daily (after meals) for 10 days. [facility] ondansetron (ZOFRAN) 4 mg tablet 2019-12-03 00:00:00 2019-11 00:00:00 No Cystitis 4mg Take 1 tablet by mouth every 8 hours as needed for Nausea. [facility] cefpodoxime (VANTIN) 200 mg tablet 2019-12-03 00:00:00 00:00:00 No Cystitis 200mg Q.5D Take 1 tablet by mouth 2 times daily for 10 days. [facility] nitrofurantoin mono/m-crystals (MACROBID) 100 mg capsule 2019-11-06 00:00:00 Yes Hematuria, unspecified type 100mg Q.5D Take 1 capsule by mouth 2 times daily. [facility] PHENAZOPYRIDINE HCL (PYRIDIUM) 100 mg tablet 00:00:00 2019-11-09 23:59:00 No Hematuria, unspecified type 100mg Take 100 mg by mouth 3 times daily as needed for up to 3 days for Pain. [facility] benzonatate (TESSALON PERLES) 100 mg capsule 2019-03-11 00:0 0:00 Yes Viral URI with cough Take 1-2 capsules by mouth every 8 hours as needed for cough: Please use TONGAN LABEL. [facility] cetirizine (ZYRTEC) 10 mg tablet 2019-03-11 00:00:00 Yes Viral URI with cough 10mg QD Take 1 tablet by mouth daily. [facility] mometasone (NASONEX) 50 mcg/actuation nasal spray 2019-03-11 00:00:00 Yes Viral URI with cough 2{spray} QD 2 Sprays by each no stril route daily Please use TONGAN LABEL. [facility] metFORMIN (GLUCOPHAGE XR) 500 mg ER extended release tablet 2019-02-07 00:00:00 Yes Prediabetes 500mg QD Take 1 t ablet by mouth daily (with breakfast). [facility] atorvastatin (LIPITOR) 40 mg tablet 2019-02-07 00:00:00 Yes Mixed hyperlipidemia 80mg Take 2 tablets by mouth at bedtime nightly [facility] fenofibrate nanocrystallized (TRICOR) 145 mg tablet 2018-03 00:00:00 Yes Mixed hyperlipidemia 145mg QD Take 1 tabl et by mouth daily Dose increased 06/20/2018. [facility] nitrofurantoin mono/m-crystals (MACROBID) 100 mg capsule 2019-01-31 00:00:00 2019-02-10 23:59:00 No UTI due to extended- spectrum beta lactamase (ESBL) producing Escherichia coli 100mg Q.5D Take 1 capsul e by mouth 2 times daily for 10 days. [facility] atorvastatin (LIPITOR) 40 mg tablet 2019-01-30 00:00:0 0 2019-02-07 00:00:00 No Mixed hyperlipidemia 80mg Take 2 tablets by mouth at bedtime nightly [facility] cetirizine (ZYRTEC) 10 mg tablet 2019-01-28 00:00:00 2019-02 00:00:00 No Nasal congestion with rhinorrhea 10mg QD Take 1 tablet by mouth daily Please use TONGAN LABEL. [facility] fenofibrate nanocrystallized (TRICOR) 145 mg tablet 2019-01-28 00:00:00 2019-02-07 00:00:00 No Mixed hyperlipidemia 145mg QD Take 1 tablet by mouth daily Dose increased 06/20/2018. Clive whitlock ciprofloxacin HCl (CIPRO) 500 mg tablet 00:00:00 2019-02-07 23:59:00 No Dysuria 500mg Q.5D Take 1 tablet by mouth 2 times daily for 10 days. [facility] atorvastatin (LIPITOR) 40 mg tablet 2019-01-28 00:00:0 0 2019-01-30 00:00:00 No Mixed hyperlipidemia 40mg Take 1 tablet by mouth at b edtime nightly [facility] codeine-guaiFENesin (CHERATUSSIN AC) 10-100 mg/5 mL syrup 2018-11-06 00:00:00 2019-03-11 00:00:00 No Cough 10mL Take 10 mL by mouth 3 times daily as needed for Cough or Congestion Caution: may cause drowsiness. [facility] benzonatate (TESSALON PERLES) 100 mg capsule 201 12-01-05 00:00:00 2019-03-11 00:00:00 No Viral URI with cough Take 1-2 capsules by mouth every 8 hours as needed for cough. [facility] mometasone (NASONEX) 50 mcg/actuation nasal spray 2018-10-29 00:00:00 2019-03-11 00:00:00 No Nasal congestion with rhinorrhea 2{spr ay} QD 2 Sprays by each nostril route daily [facility] Serafin cetirizine (ZYRTEC) 10 mg tablet 2018-10-29 00:00:00 2019-01 00:00:00 No Nasal congestion with rhinorrhea 10mg QD Take 1 tablet by mouth daily Please use TONGAN LABEL. [facility] atorvastatin (LIPITOR) 40 mg tablet 2018-06-20 00:00:0 0 2019-01-28 00:00:00 No Mixed hyperlipidemia 40mg Take 1 tablet by mouth at b edtime nightly [facility] fenofibrate nanocrystallized (TRICOR) 145 mg tablet 2018-06-20 00:00:00 2019-01-28 00:00:00 No Mixed hyperlipidemia 145mg QD Take 1 tablet by mouth daily Dose increased 06/20/2018. [facility] hydrocortisone 2.5 % topical cream 2018-05-06 00:00:00 Yes Hemorrhoids, unspecified hemorrhoid type Q.5D Apply to affected area 2 times daily. [facility] hydrocortisone (ANUSOL-HC) 25 mg rectal suppository 05-06 00:00:00 Yes Hemorrhoids, unspecified hemorrhoid type 25mg Q.5D Insert 1 Suppository rectally 2 times daily. [facility] Immunizations Ordered Immunization Name Filled Immunization Name Date Status Comments Source Influenza, Vaccine<FLUCELVAX>(Multi-Dose) 2019-01-28 00:00 :00 Completed [facility] Influenza, Vaccine<FLUCELVAX>(Multi-Dose) 2018-05-06 00:00 :00 Completed [facility] Influenza Vaccine, Seasonal, Injectable 2017-02-06 00:00:0 0 Completed [facility] Herpes Zoster Vaccine In Clinic 2015-02-12 00:00:00 Comple [facility] Influenza Vaccine 2015-02-03 00:00:00 Completed [facility] Influenza Vaccine 2014-01-07 00:00:00 [facility] Tdap Tetanus, diphtheria, acellular pertussis Vaccine 2012-10-29 00:00:00 Completed [facility] Influenza Vaccine 2011-01-03 00:00:00 Completed [facility] Td Tetanus, diphtheria Toxoids Vaccine 2003-11-26 00:00:00 [facility] Vital Signs Vital Name Observation Time Observation Value Comments Source Systolic blood pressure 2019-12-03 01:51:00 134 mm[Hg] [facility] Diastolic blood pressure 2019-12-03 01:51:00 79 mm[Hg] [facility] Heart rate 2019-12-03 01:51:00 61 /min [facility] Body temperature 2019-12-03 01:51:00 36.94 [facility] Respiratory rate 2019-12-03 01:51:00 16 /min [facility] Oxygen saturation in Arterial blood by Pulse oximetry 12-02 01:51:00 100 /min [facility] Body height 2019-03-11 11:15:00 154.9 cm [facility] Body weight 2019-03-11 11:15:00 86.183 kg [facility] BMI 2019-03-11 11:15:00 35.90 kg/m2 [facility] Procedures Procedure Date / Time Performed Performing Clinician [facility] e BASIC METABOLIC PANEL 2019-12-26 15:32:00 Stephanie [facility] URINALYSIS 2019-12-26 15:32:00 ReginoJadeCynthia [facility] CBC/DIFF 2019-12-26 15:32:00 Stephanie [facility] URINALYSIS 2019-12-26 15:32:00 Stephanie [facility] CBC 2019-12-26 15:32:00 ReginoCynthia [facility] URINE CULTURE 2019-12-26 15:32:00 ReginoCynthia [facility] H. PYLORI STOOL AG 2019-12-18 10:02:00 [facility] URINALYSIS 2019-12-17 15:38:00 ReginoJadeCynthia [facility] URINALYSIS 2019-12-17 15:38:00 ReginoJadeCynthia [facility] BASIC METABOLIC PANEL 2019-12-17 15:38:00 Arreaga [facility] LIPASE 2019-12-17 15:38:00 [facility] CBC/DIFF 2019-12-17 15:38:00 [facility] 2019-12-17 15:38:00 ArreagaMike [facility] h URINE CULTURE 2019-12-17 15:38:00 ReginoCynthia [facility] URINE CULTURE 2019-12-02 23:22:00 Ivy Murray [facility] CT ABDOMEN AND PELVIS CONTRAST 2019-12-02 21:57:00 Derrick Sam [facility] BASIC METABOLIC PANEL 2019-12-02 15:04:00 Rivera Sam [facility] CBC/DIFF 2019-12-02 15:04:00 Rivera Sam [facility] URINALYSIS 2019-12-02 15:04:00 Rivera Sam [facility] LIVER PROFILE 2019-12-02 15:04:00 Rivera Sam [facility] LIPASE 2019-12-02 15:04:00 Rivera Sam [facility] TYPE AND SCREEN 2019-12-02 15:04:00 Rivera Sam [facility] CBC 2019-12-02 15:04:00 Rivera Sam [facility] URINALYSIS 2019-12-02 15:04:00 Rivera Sam [facility] T&S - COLLECTION 2019-12-02 15:04:00 Rivera Sam [facility] ABO/RH CONFIRMATION 2019-12-02 15:04:00 Rivera Sam [facility] URINALYSIS 2019-11-11 15:30:00 Stephanie [facility] URINALYSIS 2019-11-11 15:30:00 ReginoCynthia [facility] URINE CULTURE 2019-11-11 15:30:00 ReginoCynthia [facility] MAMMOGRAM BILAT SCREEN DIGITAL 2019-02-14 10:19:31 Tanisha Arreaga [facility] URINALYSIS 2019-01-28 11:10:00 Mike Arreaga [facility] URINALYSIS 2019-01-28 11:10:00 Mike Arreaga [facility] HEMOGLOBIN A1C 2019-01-28 11:10:00 Mike Arreaga [facility] LIPID PROFILE 2019-01-28 11:10:00 Mike Arreaga [facility] COMPREHENSIVE METABOLIC PANEL 2019-01-28 11:10:00 Paulie Arreaga [facility] CBC/DIFF 2019-01-28 11:10:00 Mike Arreaga [facility] CBC 2019-01-28 11:10:00 Mike Arreaga [facility] URINALYSIS MICROSCOPIC-REFLEX 2019-01-28 11:10:00 Paulie Arreaga [facility] URINE CULTURE 2019-01-28 11:10:00 Mike Arreaga [facility] Plan of Care Planned Activity Planned Date Details Comments Source Future Scheduled Test 2028-04-12 00:00:00 Screening for eduard gnant neoplasm of colon (procedure) [code = 688128071] [facility] Future Scheduled Test 2020-02-15 00:00:00 Breast Cancer Scrn (Yearly) [code = Breast Cancer Scrn (Yearly)] [facility] Encounters Start Date/Time End Date/Time Encounter [facility] ID Source 2019-03-14 00:00:00 2019-03-14 00:00:00 Outpatient [facility] [id number] [facility] 2019-02-14 09:22:35 2019-02-14 09:22:35 Outpatient [facility] [id number] [facility] 2019-02-07 08:25:50 2019-02-07 08:25:50 Outpatient [facility] [id number] [facility] 2019-01-28 11:09:44 2019-01-28 11:09:44 Outpatient [facility] [id number] [facility] 2019-01-28 09:14:57 2019-01-28 09:14:57 Outpatient [facility] [id number] [facility] 2019-01-28 00:00:00 2019-01-28 00:00:00 Outpatient [facility] [id number] [facility] 2018-12-10 10:27:48 2018-12-10 10:27:48 Outpatient [facility] [id number] [facility] 2018-12-06 00:00:00 2018-12-06 00:00:00 Outpatient [facility] [id number] [facility] 2018-11-06 11:46:22 2018-11-06 11:46:22 Outpatient [facility] [id number] [facility] 2018-11-06 00:00:00 2018-11-06 00:00:00 Outpatient [facility] [id number] [facility] 2018-10-31 00:00:00 2018-10-31 00:00:00 Outpatient [facility] [id number] [facility] 2018-10-29 10:19:40 2018-10-29 10:19:40 Outpatient [facility] [id number] [facility] 2018-06-20 10:51:50 2018-06-20 10:51:50 Outpatient [facility] [id number] [facility] 2018-06-20 09:36:55 2018-06-20 09:36:55 Outpatient [facility] [id number] [facility] 2018-06-07 00:00:00 2018-06-07 00:00:00 Outpatient [facility] [id number] [facility] 2018-05-06 15:37:31 2018-05-06 15:37:31 Outpatient [facility] [id number] [facility] 2018-04-26 00:00:00 2018-04-26 00:00:00 Outpatient [facility] [id number] [facility] 2018-04-22 08:52:56 2018-04-22 08:52:56 Outpatient [facility] [id number] [facility] 2018-02-21 09:20:39 2018-02-21 09:20:39 Outpatient [facility] [id number] [facility] 2018-02-21 08:09:03 2018-02-21 08:09:03 Outpatient [facility] [id number] [facility] 2017-12-04 10:32:33 2017-12-04 10:32:33 Outpatient [facility] [id number] [facility] 2017-11-27 00:00:00 2017-11-27 00:00:00 Outpatient [facility] [id number] [facility] 2017-11-06 08:59:13 2017-11-06 08:59:13 Outpatient [facility] [id number] [facility] 2017-10-15 08:38:45 2017-10-15 08:38:45 Outpatient [facility] [id number] [facility] 2017-10-09 09:57:49 2017-10-09 09:57:49 Outpatient [facility] [id number] [facility] 2017-10-09 08:38:02 2017-10-09 08:38:02 Outpatient [facility] [id number] [facility] 2017-09-21 00:00:00 2017-09-21 00:00:00 Outpatient [facility] [id number] [facility] 2017-09-11 00:00:00 2017-09-11 00:00:00 Outpatient [facility] [id number] [facility] 2017-09-07 00:00:00 2017-09-07 00:00:00 Outpatient [facility] [id number] [facility] 2017-09-05 00:00:00 2017-09-05 00:00:00 Outpatient [facility] [id number] [facility] 2017-09-04 14:14:53 2017-09-04 14:14:53 Outpatient [facility] [id number] [facility] 2017-08-27 10:51:03 2017-08-27 10:51:03 Outpatient [facility] [id number] [facility] 2017-08-27 09:28:24 2017-08-27 09:28:24 Outpatient [facility] [id number] [facility] 2017-08-14 08:43:30 2017-08-14 08:43:30 Outpatient [facility] [id number] [facility] 2017-08-10 08:49:43 2017-08-10 08:49:43 Outpatient [facility] [id number] [facility] 2017-07-12 00:00:00 2017-07-12 00:00:00 Outpatient [facility] [id number] [facility] 2017-06-29 00:00:00 2017-06-29 00:00:00 Outpatient [facility] [id number] [facility] 2017-05-07 00:00:00 2017-05-07 00:00:00 Outpatient [facility] [id number] [facility] 2017-03-13 00:00:00 2017-03-13 00:00:00 Outpatient [facility] [id number] [facility] 2017-03-12 14:08:24 2017-03-12 14:08:24 Outpatient [facility] [id number] [facility] 2017-02-06 09:58:40 2017-02-06 09:58:40 Outpatient [facility] [id number] [facility] 2017-02-06 09:51:54 2017-02-06 09:51:54 Outpatient [facility] [id number] [facility] 2017-02-06 08:38:51 2017-02-06 08:38:51 Outpatient [facility] [id number] [facility] 2017-01-29 10:14:17 2017-01-29 10:14:17 Outpatient [facility] [id number] [facility] 2017-01-01 00:00:00 2017-01-01 00:00:00 Outpatient [facility] [id number] [facility] 2016-12-05 10:09:17 2016-12-05 10:09:17 Outpatient [facility] [id number] [facility] 2016-12-01 00:00:00 2016-12-01 00:00:00 Outpatient [facility] [id number] [facility] 2016-11-10 11:10:21 2016-11-10 11:10:21 Outpatient [facility] [id number] [facility] 2016-10-31 10:56:24 2016-10-31 10:56:24 Outpatient [facility] [id number] [facility] 2016-10-30 14:08:56 2016-10-30 14:08:56 Outpatient [facility] [id number] [facility] 2016-10-16 08:55:01 2016-10-16 08:55:01 Outpatient [facility] [id number] [facility] Results Test Description Test Time Test Comments Results Result Comments Source URINE CULTURE (C & S) 2019-12-29 07:01:00 Test Item Urine Culture (test code = 630-4) Multiple organisms s uggestive of contamination. No further workup performed. [facility] [id number] 21:15:00* Test Item Value Reference Range Interpretation Comments Sodium (test code = 2951-2) 141 mmol/L 136-145 Potassium (test code = 2823-3) 4.3 mmol/L 3.5-5.1 Chloride (test code = 2075-0) 104 mmol/L 98-107 CO2 (test code = 33473660) 26 mmol/L 21-31 Urea Nitrogen (test code = 19786572) 11.0 mg/dL 7-25 Creatinine (test code = 01534206) 0.8 mg/dL 0.6-1.2 Glucose (test code = 47430580) 99 mg/dL 70-110 Calcium (test code = 21638851) 10.0 mg/dL 8.6-10.3 GFR, Estimated (test code = 86917000) 73 >=90 mL/min/1.73 m2 L Anion Gap (test code = 09189428) 11 mmol/L 5-16 Lab Interpretation (test code = 76616-4) Abnormal [id number] 20:59:00* Test Item Value Reference Range Interpretation Comments Color (test code = 06703312) Yellow Colorless, Straw, Yellow Clarity (test code = 08277365) Hazy Clear A Spec [place], Ur (test code = 62474203) 1.027 1.001-1.035 pH, Ur (test code = 77353779) 5.0 5.0-8.0 Protein, Ur (test code = 98226808) Negative Negative mg/dL Glucose, Ur (test code = 71256842) Negative Negative mg/dL Ketone, Ur (test code = 82766309) Negative Negative mg/dL Bilirubin, Ur (test code = 71495789) Negative Negative mg/dL Nitrite, Ur (test code = 77860152) Negative Negative Leukocyte (test code = 91188726) 1+ Negative mg/dL A Blood, Ur (test code = 08849774) Negative Negative mg/dL RBC (test code = 83193388) 1 0- 4 /HPF WBC (test code = 28124224) 2 0- 5 /HPF Epithelial Cell (test code = 89372932) 1 <=1 /HPF Mucous (test code = 36501308) Present None seen /HPF A Urobilinogen, Ur (test code = 64046599) <1.0 <1.0 EU/dL Lab Interpretation (test code = 25871-4) Abnormal [id number] 20:53:00* Test Item Value Reference Range Interpretation Comments WBC (test code = 6690-2) 8.7 K/uL 4.5-11 RBC (test code = 789-8) 4.63 4.20- 5.40 M/uL Hemoglobin (test code = 718-7) 13.7 g/dL 12-16 Hematocrit (test code = 4544-3) 40.7 % 37-47 MCV (test code = 787-2) 87.9 fL 82-92 MCH (test code = 785-6) 29.6 pg 27-32 MCHC (test code = 786-4) 33.7 g/dL 32-36 RDW (test code = 21410-0) 43.6 fL 36.4-46.3 Platelet (test code = 777-3) 257 K/uL 150-400 Mean Platelet Volume (test code = 89651-2) 12.0 fL 9.4-12.4 Percent NRBC (test code = 26973941) 0.0 % Neutrophil (test code = 770-8) 73.5 % 34-70 H Lymphs (test code = 736-9) 20.2 % 20-50 Monocytes (test code = 5905-5) 4.9 % 5-12 L Eos (test code = 713-8) 0.5 % 0.7-5 L Basos (test code = 706-2) 0.6 % 0.1-1.2 Immature Granulocytes (test code = 15147788) 0.3 % 0-0.5 Neutrophils (Absolute) (test code = 68206853) 6.40 K/uL 1.56-6.1 3 H Lymphs (Absolute) (test code = 60227032) 1.76 K/uL 1.18-3.74 Monocytes(Absolute) (test code = 30143801) 0.43 K/uL 0.24-0.36 H Eos (Absolute) (test code = 22367404) 0.04 K/uL 0.04-0.36 Baso (Absolute) (test code = 57990141) 0.05 K/uL 0.01-0.08 Immature Grans (Abs) (test code = 85629868) 0.03 K/uL 0-0.03 Absolute NRBC (test code = 22756690) 0.00 K/uL Lab Interpretation (test code = 44694-9) Abnormal [facility] Pylori Stool [id number] 23:06:00* Test Item Value Reference Range Interpretation Comments H. pylori Stool Ag, EIA (test code = 26133-3) Negative Negative NESTOR (test code = NESTOR) Performed at: [address] [place] [address] [id number] Director: Veronica Killian MD, Phone: [phone] [facility] [id number] 21:00:00* Test Item Value Reference Range Interpretation Comments Lipase (test code = 00661901) 37 U/L 11-82 Lab Interpretation (test code = 99825-6) Normal [facility] P[facility] [id number] 00:35:27IMPRESSION: 1. Mild thickening of the bladder wall, which can be seen in cystitis.2. Hepatomegaly with steatosis. Dictated By: Armond Wang DO, 12/02/2019 10:14 PM I have reviewed the study and agree with the findings in this report. Signed By: Demario Hunter DO, 12/03/2019 12:35 AM Interface, Samy/Mammog In - 12/03/2019 12:40 AM CDTEXAM: CT Abdomen and Pelvis WITH contrast INDICATION: Abd pain, acute, generalized Lower abdominal pain HISTORY: 59 y/o F with a h/o anemia, anxiety, recent UTI s/p treatmentin the past week who p/w ongoing lower abdominal pain, mild dysuria, andc/f kidney stones as well as GIB per PCP (pt sent for ev aluation). Shereports R flank pain radiating to her RLQ without hematuria; she d eniesfever, chills. She reports nausea and 2 episodes of non-bloody emesis.She a lso reports dark stools x 2 days (6 total episodes), as well asgeneralized fatig ue.?COMPARISON: CT abdomen pelvis on 11/10/2016TECHNIQUE: Abdomen and pelvis were scanned utilizing a multidetectorhelical scanner from the lung base to the pubic symphysis afteradministration of IV contrast. Coronal and sagittal reformations wereobtained. Routine protocol was performed. Scan was performed when duringpo rtal venous phase. IV CONTRAST: 100 mL of Omnipaque 300 ORAL CONTRAS T: None COMPLICATIONS: NoneRADIATION DOSE: Total DLP: 401 mGy*cm Estimated effective dose: (DLP x 0.015 x size factor) mSv CTDIvol has be en reviewed. It is below the limits set by theRadiation Protocol Committee (RPC) .FINDINGS:LINES and TUBES: None.LOWER THORAX: Unremarkable.HEPATOBILIARY: The l iver measures 16.7 cm in the right midclavicularline. Decreased attenuation when compared to the spleen, compatible withsteatosis. No focal hepatic lesions. No biliary ductal dilation. GALLBLADDER: No radio-opaque stones or sludge. No wall thickening.SPLEEN: No splenomegaly. Unchanged 0.5 cm hypodense lesion along t heinferior aspect of the spleen is too small to characterize.PANCREAS: No focal masses or ductal dilatation. ADRENALS: No adrenal nodules. KIDNEYS/URETERS: Kidneys enhance symmetrically. No hydronephrosis. Unchanged 1.4 cm cyst in the right superior pole. No stones.GI TRACT: Stomach: Unremarkable.Small Bowel: Unr emarkable.Large Bowel: Unremarkable.Appendix: Normal.PELVIC ORGANS/BLADDER: Mild bladder wall thickening. The uterus issurgically absent.LYMPH NODES: No lymphad enopathy.VESSELS: Minimal atherosclerosis of the infrarenal abdominal aorta.MEENA TONEUM / RETROPERITONEUM: No free air or fluid.BONES: Unremarkable mild degenera tive changes of the lumbar spine.SOFT TISSUES: Tiny fat-containing periumbilical hernia.. IMPRESSIONIMPRESSION: 1. Mild thickening of the bladder wall, which can be seen in cystitis.2. Hepatomegaly with steatosis.Dictated By: Armond san DO, 12/02/2019 10:14 PMI have reviewed the study and agree with the findings in this report.Signed By: Demario Hunter DO, 12/03/2019 12:35 [id number] 16:15:00* Test Item Value Reference Range Interpretation Comments Specimen Expiration (test code = 05003953) 12/05/2019 23:59 ABO/RH (test code = 99043402) O POS Antibody Screen (test code = 78156063) NEG [facility] [id number] 16:12:00* Test Item Value Reference Range Interpretation Comments ABO/RH (test code = 69960549) O POS [facility] [id number] 16:11:00* Test Item Value Reference Range Interpretation Comments Bilirubin, Total (test code = 2885-2) 0.5 mg/dL 0.2-1.2 Alkaline Phosphatase (test code = 16585142) 112 U/L 34-104 H AST (test code = 57464283) 19 U/L 13-39 Direct Bilirubin (test code = 1968-7) 0.1 mg/dL 0-0.2 ALT (test code = 83550056) 26 U/L 7-52 Albumin (test code = 49757-1) 4.9 g/dL 3.7-5.3 Lab Interpretation (test code = 48100-2) Abnormal [facility]AMMO[facility] BILAT SCREEN [id number] 12:24:00IMPRESSION: BENIGNThere is no mammographic evidence of malignancy. A 1 year screening mammogram is recommended. This document has been electronically signed. Nicole Haney M.D. ks/:02/14/2019 12:24:28 Surgical Services Manager: Ms. Aimee Ba RT(R)(M), [facility] Benign Exam Ma mmogram BI-RADS: 2 Benign G0202 z12.31Interface, Rad/Mammog In - 02/14/2019 2 :14 PM TRACK OILER#[id number] - MAMMOGRAM BILAT SCREEN DIGITALBILATERAL DIGITAL SCREENING MAMMOGRAM WITH CAD: 02/14/2019CLINICAL: Screening for malignancy. Comparison is made to exams dated: 12/04/2017, 12/05/2016, and 07/16/2015 [facility] [place] [address]. There are scattered fibroglandular elements in both breasts that could obs cure a lesion on mammography. Current study was also evaluated with a Computer Aided Detection (CAD) system. No new significant masses, calcifications, or oth er findings are seen in either breast. There are benign calcifications in both breasts. IMPRESSIONIMPRESSION: BENIGNThere is no mammographic evidence of malangelo schulte. A 1 year screening mammogram is recommended. This document has been elec tronically signed.Nicole Haney M.D. ks/:02/14/2019 12:24:28 Surgical Services Manager: Ms. Aimee Ba RT(R)(M), [facility]letter sen t: Benign Exam Mammogram BI-RADS: 2 Benign G0202 z12.31[facility] Hemoglobin [id number] 10:50:00* Test Item Value Reference Range Interpretation Comments Hemoglobin A1c (test code = 4548-4) 6.0 % 4.3-6.1 Estimated Average Glucose (test code = 47582841) 126 mg/dL 70-11 0 H Lab Interpretation (test code = 02338-9) Abnormal [facility]Lipid [id number] 07:24:00* Test Item Value Reference Range Interpretation Comments Cholesterol (test code = 2093-3) 222.0 mg/dL <=200.0 H Triglyceride (test code = 85139109) 446 mg/dL <150 H HDL (test code = 2085-9) 36.0 mg/dL See Reference Range Narrative . LDL (test code = 98701-9) <100 mg/dL Tr iglyceride value is > 400 mg/dl. Unable to calculate LDL value due to high triglyceride. Patient Fasting? (test code = 57955953) Yes Lab Interpretation (test code = 98011-5) Abnormal [facility] [id number] 07:24:00* Test Item Value Reference Range Interpretation Comments Sodium (test code = 2951-2) 141 mmol/L 136-145 Potassium (test code = 2823-3) 4.3 mmol/L 3.5-5.1 Chloride (test code = 2075-0) 105 mmol/L 98-107 CO2 (test code = 19861128) 27 mmol/L 21-31 Glucose (test code = 14855135) 74 mg/dL 70-110 Calcium (test code = 28591331) 9.7 mg/dL 8.6-10.3 Urea Nitrogen (test code = 03878979) 11.0 mg/dL 7-25 Creatinine (test code = 27622343) 0.6 mg/dL 0.6-1.2 Alkaline Phosphatase (test code = 14517407) 93 U/L 34-104 ALT (test code = 37738351) 19 U/L 7-52 AST (test code = 03538684) 16 U/L 13-39 Total Protein (test code = 2885-2) 7.3 g/dL 6-8.3 GFR, Estimated (test code = 45638055) >90 >=90 mL/min/1.73 m2 Albumin (test code = 15259-4) 4.6 g/dL 3.7-5.3 Anion Gap (test code = 37512796) 9 mmol/L 5-16 Lab Interpretation (test code = 13726-2) Normal [facility]INALYSIS, [id number] 11:42:00* Test Item Value Reference Range Interpretation Comments RBC (test code = 43162703) 1-4 0- 4 /HPF WBC (test code = 65948386) 20-50 0- 5 /HPF A Epithelial Cell (test code = 18019175) <1/HPF <1 /HPF Bacteria (test code = 75249020) Many None seen /HPF A Lab Interpretation (test code = 67242-1) Abnormal [facility]
[2020-01-07] MEDS ORDERED: IOPAMIDOL 370 MG/ML 200 ML INFUS..BTL INJ ONE (05:18)
[2020-01-07] MEDS ORDERED: SODIUM CHLORIDE 0.9% 50ML 50 ML ONE (05:19)
--- NOTE | 2020-01-07 06:34 | Diagnostic Imaging Report ---
EXAM: CT Abdomen and Pelvis WITH contrast INDICATION: ^R sided abd pain COMPARISON: None. TECHNIQUE: Abdomen and pelvis were scanned utilizing a multidetector helical scanner from the lung base to the pubic symphysis after administration of IV contrast. Coronal and sagittal reformations were obtained. Dose modulation, iterative reconstruction, and/or weight based adjustment of the mA/kV was utilized to reduce the radiation dose to as low as reasonably achievable. Routine protocol was performed. Scan was performed when during portal venous phase. IV CONTRAST: 100 mL of Isovue-370 ORAL CONTRAST: Water COMPLICATIONS: None RADIATION DOSE: Total DLP: 829.81 mGy*cm Estimated effective dose: (DLP x 0.015 x size factor) mSv CTDIvol has been reviewed. It is below the limits set by the Radiation Protocol Committee (RPC). FINDINGS: LINES and TUBES: None. LOWER THORAX: Unremarkable HEPATOBILIARY: No focal hepatic lesions. No biliary ductal dilation. GALLBLADDER: No radio-opaque stones or sludge. No wall thickening. SPLEEN: No splenomegaly. Too small to characterize hypodensity, likely a cyst. PANCREAS: No focal masses or ductal dilatation. ADRENALS: No adrenal nodules KIDNEYS/URETERS: Kidneys enhance symmetrically. No hydronephrosis. No renal mass. 1.4 cm right midpole hypodensity with slightly greater than simple fluid density, likely a mildly complex cyst. Subcentimeter right inferior pole hypodensity is too small to characterize. No stones. GI TRACT: No abnormal distention, wall thickening, or evidence of bowel obstruction. There are diverticula within the colon without evidence of diverticulitis. Appendix is normal. PELVIC ORGANS/BLADDER: Hysterectomy. Bladder is unremarkable. LYMPH NODES: No lymphadenopathy. VESSELS: Unremarkable. PERITONEUM / RETROPERITONEUM: No free air or fluid. BONES: Unremarkable. SOFT TISSUES: Unremarkable. IMPRESSION: 1. No acute inflammatory process in the abdomen/pelvis. 2. Colonic diverticulosis without evidence of diverticulitis. Signed by: Dr. Clifton Schwartz MD on 01/07/2020 6:31 AM
--- NOTE | 2020-01-07 06:36 | Diagnostic Imaging Report ---
EXAMINATION: CHEST SINGLE (PORTABLE) INDICATION: ^Y ^CP COMPARISON: None FINDINGS: AP view TUBES and LINES: None. LUNGS: Slight rotation. Lungs are well inflated. There is no evidence of pneumonia or pulmonary edema. Small left midlung linear atelectasis/scarring. PLEURA: No pleural effusion or pneumothorax. HEART AND MEDIASTINUM: The cardiomediastinal silhouette is unremarkable. BONES AND SOFT TISSUES: No acute osseous lesion. Soft tissues are unremarkable. UPPER ABDOMEN: No free air under the diaphragm. IMPRESSION: No acute thoracic abnormality. Signed by: Dr. Clifton Schwartz MD on 01/07/2020 6:32 AM
[2020-01-07 06:53] VITALS: BP 143/63
[2020-01-08] MEDS ORDERED: ZOFRAN4 MG SL (01:35)
== END 2020-01-07 07:01 | disposition home or self-care (01) ==
LOC: ER 04:30
DX: R10.9 Unspecified abdominal pain (principal); K29.70 Gastritis, unspecified, without bleeding; K21.9 Gastro-esophageal reflux disease without esophagitis; K57.90 Diverticulosis of intestine, part unspecified, without perforation or abscess without bleeding; E78.5 Hyperlipidemia, unspecified
CPT/HCPCS: 36415; 71045; 74177; 80053; 81001; 83690; 84484; 85025; 93005; 96374; 99284; C9113; J2405; Q9967

== ENCOUNTER 2020-01-08 00:39 | Emergency (ER) | payer SELFPAY ==
[~2020-01-08] VITALS: Ht 160 cm; Wt 77.1 kg
[2020-01-08 01:11] VITALS: BP 148/89
[2020-01-08] MEDS ORDERED: ZOFRAN4 MG SL (01:35)
== END 2020-01-08 01:43 | disposition home or self-care (01) ==
LOC: ER 01:06
DX: K29.60 Other gastritis without bleeding (principal); E78.5 Hyperlipidemia, unspecified
CPT/HCPCS: 99282